=== PATIENT | male | born 1975 | race Caucasian/White ===

== ENCOUNTER 2019-04-10 03:35 | Emergency (ER) | payer MEDICAID ==
[~2019-04-10] VITALS: Ht 170.2 cm; Wt 70.3 kg
[2019-04-10 03:38] VITALS: Ht 170.2 cm; Wt 70.3 kg
[2019-04-10 04:47] VITALS: BP 102/63
== END 2019-04-10 05:22 | disposition home or self-care (01) ==
LOC: ED 03:35
DX: S31.119A Laceration without foreign body of abdominal wall, unspecified quadrant without penetration into peritoneal cavity, initial encounter (principal); Z48.01 Encounter for change or removal of surgical wound dressing; Z87.19 Personal history of other diseases of the digestive system; X58.XXXA Exposure to other specified factors, initial encounter; Y93.89 Activity, other specified; Y92.89 Other specified places as the place of occurrence of the external cause; Y99.8 Other external cause status
CPT/HCPCS: J2001